=== PATIENT | female | born 1955 | race Caucasian/White ===

== ENCOUNTER 2021-01-10 12:46 | Emergency (ER) | payer MEDICARE ==
[2021-01-10] MEDS ORDERED: TORAdol 30 mg Injection ONE (12:58)
[2021-01-10] MEDS ORDERED: TORAdol 30 mg Injection IM ONE (12:58)
--- NOTE | 2021-01-10 13:16 | ERPHSYRPT ---
- History of Present Illness Time Seen by Provider: 01/10/21 13:12 Source: patient Exam Limitations: no limitations Patient Subjective Stated Complaint: pt here for pain to left wrist, she stepped out of a camper and fell on deck landing on left wrist Triage Nursing Assessment: pt alert, resp easy, walked in, face fask in place, has deformity to left wrist, hand warm with strong radial pulse Physician History: pt here for pain to left wrist, she stepped out of a camper and fell on deck landing on left wrist Occurred: just prior to arrival Reason for Fall: fell from standing pos Injuries/Pain Location: upper extremity (left) Loss of Consciousness: no loss of consciousness Quality: aching Severity of Pain-Max: moderate Severity of Pain-Current: moderate Modifying Factors: Improves With: nothing Associated Symptoms (Fall): denies symptoms Allergies/Adverse Reactions: ciprofloxacin [From Cipro] Adverse Reaction (Verified 01/10/21 13:00) levofloxacin [From Levaquin] Adverse Reaction (Verified 01/10/21 13:00) Home Medications: Fluticasone/Salmeterol 230/21* [Advair Hfa 230/21 Mcg MDI] 1 ea DAILY 01/10/21 [History] Hydrochlorothiazide 1 ea DAILY 01/10/21 [History] Hx Influenza Vaccination/Date Given: Yes Hx Pneumococcal Vaccination/Date Given: Yes Immunizations Up to Date: Yes Travel Risk - International Travel Have you traveled outside of the country in past 3 weeks: No - Coronavirus Screening Are you exhibiting any of the following symptoms?: No Close contact with a COVID-19 positive Pt in past 14-21 Days: No - Review of Systems Constitutional: No Fever, No Chills Eyes: No Symptoms Ears, Nose, & Throat: No Symptoms Respiratory: No Cough, No Dyspnea Cardiac: No Chest Pain, No Edema, No Syncope Abdominal/Gastrointestinal: No Abdominal Pain, No Nausea, No Vomiting, No Diarrhea Genitourinary Symptoms: No Dysuria Musculoskeletal: Deformity (left wrist), Fall, Joint Pain, Joint Swelling, No Back Pain, No Neck Pain Skin: No Rash Neurological: No Dizziness, No Focal Weakness, No Sensory Changes Psychological: No Symptoms Endocrine: No Symptoms All Other Systems: Reviewed and Negative - Past Medical History Pertinent Past Medical History: Yes Respiratory History: COPD - Past Surgical History Past Surgical History: Yes Female Surgical History: Hysterectomy - Social History Smoking Status: Former smoker Exposure to second hand smoke: No Drug Use: none Patient Lives Alone: No - Female History Hx Last Menstrual Period: post - Nursing Vital Signs Nursing Vital Signs: Initial Vital Signs Temperature 97.4 F 01/10/21 12:54 Pulse Rate 88 01/10/21 12:54 Respiratory Rate 18 01/10/21 12:54 Blood Pressure 161/75 01/10/21 12:54 O2 Sat by Pulse Oximetry 95 01/10/21 12:54 Pain Scale Pain Intensity 7 - Vanita Coma Score Best Eye Response ([place]): (4) open spontaneously Best Verbal Response ([place]): (5) oriented Best Motor Response ([place]): (6) obeys commands Vanita Total: 15 - Physical Exam General Appearance: no apparent distress, alert Head Injury: no evidence of injury Eye Exam: PERRL/EOMI ENT Exam: airway nml Neck Exam: normal inspection, No tenderness Respiratory/Chest Exam: normal breath sounds, No chest tenderness, No respiratory distress Cardiovascular Exam: normal heart sounds, regular rate/rhythm Gastrointestinal Exam: soft, No tenderness, No distention, No guarding, No ecchymosis Back Exam: normal inspection, No vertebral tenderness Extremity Exam: normal inspection, normal range of motion, pelvis stable, limited range of motion, bony point tenderness (left wrist, elbow), evidence of injury, No deformities Neurologic Exam: alert, oriented x 3, cooperative, sensation nml, No motor deficits Skin Exam: normal color, warm, dry SpO2: 95 Procedures - Splinting Time of Procedure: 13:42 Location of Splint: Left, Wrist Type of Splint: Orthoglass Short Arm Splint Splint Applied By: ED Nurse Pre-Proc Neuro Vasc Exam: normal Post-Proc Neuro Vasc Exam: neurovascular intact - Course Nursing assessment & vital signs reviewed: Yes - Radiology Exams Elbow X-ray Interpretation: Reviewed by me Wrist X-ray Interpretation: Reviewed by me, Displaced Fracture Hand X-ray Interpretation: Reviewed by me Ordered Tests: Active Orders 24 hr Category Date Time Status Cold Application STAT Care 01/10/21 12:56 Active ELBOW (MINIMUM 3 VIEWS) Stat Exams 01/10/21 12:55 Taken HAND (MINIMUM 3 VIEWS) Stat Exams 01/10/21 12:55 Taken WRIST (MIN 3 VIEWS) Stat Exams 01/10/21 12:55 Taken Medication Summary Discontinued Medications Generic Name Dose Route Start Last Admin Trade Name Alicia PRN Reason Stop Dose Admin Ketorolac Tromethamine 60 mg 01/10/21 12:58 01/10/21 13:04 Toradol 30 Mg Injection IM 01/10/21 12:59 60 mg STAT ONE Administration Ketorolac Tromethamine Confirm 01/10/21 12:58 Toradol 30 Mg Injection Administered 01/10/21 12:59 Dose 60 mg .ROUTE .STK-MED ONE - Progress Progress: unchanged, pain not gone completely Counseled pt/family regarding: diagnosis, need for follow-up (with orthopedics surgeon on tuesday) - Departure Departure Disposition: Home Clinical Impression: Wrist fracture, closed Qualifiers: Encounter type: initial encounter Laterality: left Qualified Code(s): S62.102A - Fracture of unspecified carpal bone, left wrist, initial encounter for closed fracture Condition: Stable Critical Care Time: No Referrals: MUMTAZ CORTEZ, [Primary Care Provider] - Instructions: Wrist Fracture (DC) Additional Instructions: follow up with your [facility] care physician or orthopedics surgeon in your town on tuesday. Discharge/Care Plan ELIZA ANGEL was seen on 01/10/21 in the Emergency Room. The patient was counseled regarding Diagnosis,Lab results, Imaging studies, need for follow up and when to return to the Emergency Room. Prescriptions given: Discharge Note I have spoken with the patient and/or caregivers. I have explained the patient's condition, diagnosis and treatment plan based on the information available to me at this time. I have answered the patient's and/or caregiver's questions and addressed any concerns. The patient and/or caregivers have as good understanding of the patient's diagnosis, condition and treatment plan as can be expected at this point. The vital signs have been stable. The patient's condition is stable and appropriate for discharge from the emergency department. The patient will pursue further outpatient evaluation with the primary care physician or other designated or consulting physician as outlined in the discharge instructions. The patient and/or caregivers are agreeable to this plan of care and follow-up instructions have been explained in detail. The patient and/or caregivers have received these instruction. The patient/and or caregivers are aware that any significant change in condition or worsening of symptoms should prompt an immediate return to this or the closest emergency department or call 911. ELIZA ANGEL was seen on 01/10/21 n the Emergency Room. At that time you were treated for an emergent condition, during your visit Laboratory, Radiology and/or other procedures may have been ordered. It is very important that you follow-up with your Primary Care Physician MUMTAZ CORTEZ within the next 24-48 hours to review your Emergency Room visit and the final results of testing that was ordered. Some test results such as Urine Cultures, Blood Cultures, and other cultures if ordered will not be finalized for 24-48 hours. If you do not have a Primary Care Provider please call the medical records department at [phone] ext [phone] to obtain a copy of your results or you may sign into our patient portal to obtain these results by visiting us @ [email or web address] and completing the following steps: 1. Click on the Patient Portal link 2. Click the Patient Self Enrollment Link to complete the enrollment form and entering your 3. Once the enrollment form is completed you will receive an email with a temporary ID and password at the email address you provided. 4. Next choose a user name and password. Your user name must be at least 4 characters long and your password must be at least 4 characters long. 5. Choose a security question from the list and provide your answer to the question. If you already have signed into the Health Portal you may access your Health Care Information 16/05 by the following steps: 1. Login to our website @ [email or web address] 2. Enter your original user name and password. FAQS The [facility] Health Portal is an online tool that contains your Lab Results, Radiology Reports, Visit History, Discharge Instructions and Health Summary Lab and Radiology Results will not be available for 72 hours on the portal. The Portal is a secure site, passwords are encryted and URLs are re-written so they cannot be copied and pasted. You and authorized family members are the only ones who can access your Portal. Also there is a timeout feature that protects your information if you leave the Portal page open. If you have technical difficulty please use the Contact Us link on the page this will allow you to submit any questions you have regarding the Portal or you may contact the Medical Record Department at [phone]. Prescriptions: Hydrocodone/Acetaminophen [Hydrocodone-Acetamin 10-325 mg] 1 each PO Q6HPRN PRN #15 tablet MDD 4 PRN Reason: Severe Pain
[2021-01-10 13:51] VITALS: BP 151/70; PULSE 88
[2021-01-10 13:59] VITALS: O2SAT 95
--- NOTE | 2021-01-10 18:47 | XRAY ---
Indication: Pain and swelling following fall. Comparison: None 3 view left wrist demonstrates mildly displaced and angulated comminuted fracture involving distal radius with intra-articular extension, displaced comminuted ulnar styloid fracture, and soft tissue swelling. No other bony, articular, or soft tissue abnormalities. Comment: Preliminary interpretation was made by [facility]. No critical discrepancy.
--- NOTE | 2021-01-10 18:49 | XRAY ---
Indication: Pain following fall. Comparison: None 3 view left hand demonstrates distal radius/ulna fractures reported separately. No other bony, articular, or soft tissue abnormalities.
--- NOTE | 2021-01-10 18:55 | XRAY ---
Indication: Pain and swelling following fall. Comparison: None 3 view left elbow obtained. No bony, articular, or soft tissue abnormalities.
== END 2021-01-10 13:59 | disposition home or self-care (01) ==
LOC: ED 12:46
DX: S62.102A Fracture of unspecified carpal bone, left wrist, initial encounter for closed fracture (principal); M25.532 Pain in left wrist; W18.31XA Fall on same level due to stepping on an object, initial encounter; Y93.89 Activity, other specified; Y92.89 Other specified places as the place of occurrence of the external cause; J44.9 Chronic obstructive pulmonary disease, unspecified
CPT/HCPCS: 29126; 73080; 73110; 73130; 96372; 99284; J1885

== ENCOUNTER 2025-02-26 01:58 | Emergency (ER) | payer MEDICARE ==
[2025-02-26 02:15] VITALS: TEMP 98.2
--- NOTE | 2025-02-26 02:32 | ERPHSYRPT ---
- History of Present Illness Source: patient Exam Limitations: no limitations Patient Subjective Stated Complaint: pt reports sudden onset of shortness of breath while at rest this evening. reports productive cough/headache/sinus drainage for 2 days - pt states she wears oxygen as needed at home, pt reports history of bronchiestasis Triage Nursing Assessment: pt is aox3, pupils perrl, afebrile, pt is short of breath upon arrival, pt is tachypneic,pt lung sounds are diminished throughout, pt has a intermittent moist cough noted, cap refill < 3 seconds, radial pulses strong and equal, pt skin pink warm dry. no edema appreciated. Physician History: Patient took a Benadryl tonight. She thinks it made her heart race. Her heart is racing before. She gets short of breath when this happens. She has a pulse ox at home her O2 sats dropped down in the 80s and her heart rate was around 150. This lasted for about a half an hour. They decided to come in. She is at a normal heart rate at this time. She says she feels back to baseline. She does require oxygen at home when exerting herself because she has bronchiaStasis.We put her on oxygen here at 4 L and she was up to around 97 and feeling much better. Her heart was going around 80 beats a minute. She does not have any chest pain. She has no dyspnea at this time. She does not have a cough fever chills or other systemic symptoms. She has some nasal congestion and says that that is why she took the Benadryl.She has been worked up for this paroxysmal tachycardia in the past and they did not find anything. She usually does not come in when it occurs because it is usually self-limited this time it lasted for about a half an hour and she is pretty symptomatic so she decided to come in.She has no other complaints. She does not have any congestive heart failure orCoronary disease. Allergies/Adverse Reactions: ciprofloxacin [From Cipro] Adverse Reaction (Verified 02/26/25 02:15) levofloxacin [From Levaquin] Adverse Reaction (Verified 02/26/25 02:15) Home Medications: Fluticasone/Salmeterol 230/21* [Advair Hfa 230/21 Mcg MDI] 1 ea DAILY 01/10/21 [History] hydroCHLOROthiazide [Hydrochlorothiazide] 1 ea DAILY 01/10/21 [History] Hx Tetanus, Diphtheria Vaccination/Date Given: No Hx Influenza Vaccination/Date Given: Yes Hx Pneumococcal Vaccination/Date Given: Yes Immunizations Up to Date: Yes Travel Risk - International Travel Have you traveled outside of the country in past 3 weeks: No - Emerging Infectious Disease Are you exhibiting symptoms associated with any current EIDs: Yes Symptoms: Shortness of Breath - Review of Systems Constitutional: No Symptoms Eyes: No Symptoms Abdominal/Gastrointestinal: No Symptoms Genitourinary Symptoms: No Symptoms Musculoskeletal: No Symptoms Skin: No Symptoms All Other Systems: Reviewed and Negative - Past Medical History Pertinent Past Medical History: Yes Neurological History: No Pertinent History Cardiac History: Hypertension Respiratory History: Asthma, Bronchitis Endocrine Medical History: Diabetes Type II Musculoskeletal History: Fractures Other Medical History: L distal radius fracture (01/11) - Past Surgical History Past Surgical History: Yes Musculoskeletal: Orthopedic Surgery Female Surgical History: Hysterectomy Other Surgical History: WRIST - Social History Smoking Status: Former smoker Exposure to second hand smoke: No Drug Use: none - Social Determinants of Health Will the patient participate in the screening: Yes Do you worry about a steady place to live?: No Do you have any problems with any of the following?: No known problems In the past 12 months,have you had to go without utilities?: No Transportation Issues: No Has anyone in your support network made you feel unsafe?: No Have you or anyone in your house had to go w/o enough food: No - Nursing Vital Signs Nursing Vital Signs: Initial Vital Signs Temperature 98.2 F 02/26/25 01:59 Pulse Rate 119 H 02/26/25 01:59 Respiratory Rate 28 H 02/26/25 01:59 Blood Pressure 173/70 02/26/25 01:59 O2 Sat by Pulse Oximetry 91 L 02/26/25 01:59 Pain Scale Pain Intensity 2 - Physical Exam General Appearance: no apparent distress Eye Exam: PERRL/EOMI Neck Exam: normal inspection Respiratory Exam: other (Crackles in the lungs midway down. This is chronic with her.) Cardiovascular/Chest Exam: normal heart sounds, regular rate/rhythm Abdominal/Gastrointestinal Exam: soft, normal bowel sounds, tenderness Extremity Exam: non-tender, normal range of motion, normal inspection Neurologic Exam: alert, oriented x 3, cooperative, normal mood/affect Skin Exam: normal color, warm, dry SpO2 Interpretation: normal SpO2: 97 O2 Delivery: Nasal Cannula (4 L) - Course Nursing assessment & vital signs reviewed: Yes Ordered Tests: Active Orders 24 hr Category Date Time Status EKG-ER Only STAT Care 02/26/25 02:28 Active CHEST 1 VIEW (PORTABLE) Stat Exams 02/26/25 02:28 Taken BMP Stat Lab 02/26/25 02:28 Completed CBC W DIFF Stat Lab 02/26/25 02:28 Completed TROPONIN Q4H Lab 02/26/25 02:30 Completed TROPONIN Q4H Lab 02/26/25 06:45 Ordered TROPONIN Q4H Lab 02/26/25 10:45 Ordered Medication Summary Discontinued Medications Generic Name Dose Route Start Last Admin Trade Name Alicia PRN Reason Stop Dose Admin Acetaminophen 1,000 mg 02/26/25 02:38 02/26/25 02:40 Acetaminophen 500 Mg Tablet PO 02/26/25 02:39 1,000 mg STAT STA Administration Acetaminophen Confirm 02/26/25 02:39 Acetaminophen 500 Mg Tablet Administered 02/26/25 02:40 Dose 1,000 mg .ROUTE .[facility]-Notice [facility] ONE Lab/Rad Data: Laboratory Result Diagrams 02/26/25 02:28 02/26/25 02:28 Laboratory Results 02/26/25 02/26/25 02/26/25 Range/Units 02:30 02:28 02:28 WBC 13.2 H (3.98-10.04) x10^3/uL RBC 3.71 L (3.93-5.22) x10^6/uL Hgb 12.2 (11.2-15.7) g/dL Hct 38.2 (34.1-44.9) % MCV 103.0 H (79.4-94.8) fL MCH 32.9 H (25.6-32.2) pg MCHC 31.9 L (32.2-35.5) g/dL RDW 13.3 (11.7-14.4) % Plt Count 260 (182-369) x10^3/uL MPV 11.1 (9.4-12.3) fL Gran % 77.3 H (34.0-71.1) % Immature Gran % (Auto) 0.6 H (0.001-0.429) % Nucleat RBC Rel Count 0.0 (0.00-0.2) % Eos # (Auto) 0.09 (0.04-0.36) x10^3/uL Immature Gran # (Auto) 0.08 H (0.001-0.031) x10^3u/L Absolute Lymphs (auto) 1.43 (1.18-3.74) x10^3/uL Absolute Monos (auto) 1.37 H (0.24-0.86) x10^3/uL Absolute Nucleated RBC 0.00 (0.00-0.012) x10^3u/L Lymphocytes % 10.8 L (19.3-51.7) % Monocytes % 10.4 (4.7-12.5) % Eosinophils % 0.7 (0.7-5.8) % Basophils % 0.2 (0.1-1.2) % Absolute Granulocytes 10.20 H (1.56-6.13) x10^3/uL Basophils # 0.03 (0.01-0.08) x10^3/uL Sodium 141 (135-145) mmol/L Potassium 4.2 (3.5-5.1) mmol/L Chloride 102 (98-107) mmol/L Carbon Dioxide 24 (22-30) mmol/L Anion Gap 18.9 H (5-15) MEQ/L BUN 19 H (7-17) mg/dL Creatinine 1.08 H (0.52-1.04) mg/dL Estimated GFR 54.9 ML/MIN Glucose 127 H (74-106) mg/dL Calcium 10.0 (8.4-10.2) mg/dL Troponin I < 0.012 (0.000-0.033) ng/mL - Progress Progress: improved Air Movement: good Progress Note: We observe the patient for about 2 hours. She did not have any arrhythmias. Her labs all look good for the most part. At this time I do not think that there is anything to do. She is going to follow-up with her doctor again who is investigating her paroxysmal tachycardias.She is feeling back to baseline and normal. I went to let her go home. I do not know what the etiology of her tachycardias are.She is asking for something for congestion that will not cause her heart rate to go fast and will try her on Flonase. 02/26/25 03:52 02/26/25 03:54 Blood Culture(s) Obtained: No Antibiotics given: No Medical Desision Making - Independent Historian Additional History obtained from: Spouse - External Record(s) Reviewed Records reviewed as a part of evaluation & management: Inpatient - Diagnostic Testing Diagnostic test were ordered, analyzed, and reviewed by me: Yes Radiological Interpretation: Interpreted by me - Risk of complications Low Risk: Low risk of morbidity from additional dx testing or treatment - Departure Departure Disposition: Home Clinical Impression: Palpitations Condition: Stable Critical Care Time: No Referrals: MUMTAZ CORTEZ DO [Primary Care Provider, [facility]] - Follow up/PCP as directed Instructions: Overview of heart arrhythmias
[2025-02-26] MEDS ORDERED: TYLENOL EXTRA STRENGTH 500 MG ONE (02:39)
[2025-02-26] MEDS: TYLENOL EXTRA STRENGTH 500 MG PO STA (02:40)
[2025-02-26 02:41] LABS: BASOPHIL % 0.2 % (0.1-1.2); Basophil (Absolute #) 0.03 x10^3/uL (0.01-0.08); Eosinophil % 0.7 % (0.7-5.8); Eosinophil (Absolute #) 0.09 x10^3/uL (0.04-0.36); Hematocrit 38.2 % (34.1-44.9); Hemoglobin 12.2 g/dL (11.2-15.7); IMMATURE GRAN # 0.08 x10^3u/L (0.001-0.031); IMMATURE GRAN % 0.6 % (0.001-0.429); Lymphocyte (Absolute #) 1.43 x10^3/uL (1.18-3.74); Lymphocytes % 10.8 % (19.3-51.7); Mean Corpuscular Hemoglobin 32.9 pg (25.6-32.2); Mean Corpuscular Hgb Concent. 31.9 g/dL (32.2-35.5); Mean Platelet Volume 11.1 fL (9.4-12.3); Monocyte (Absolute #) 1.37 x10^3/uL (0.24-0.86); Monocytes % 10.4 % (4.7-12.5); Neutrophil % 77.3 % (34.0-71.1); Platelet Count 260 x10^3/uL (182-369); Red Blood Count 3.71 x10^6/uL (3.93-5.22); Red Cell Distribution Width 13.3 % (11.7-14.4); White Blood Count 13.2 x10^3/uL (3.98-10.04)
[2025-02-26 02:53] LABS: ANION GAP 18.9 MEQ/L (5-15); Creatinine 1 1.08 mg/dL (0.52-1.04); EST GLOMERULAR FILTRATION RATE 54.9 ML/MIN; Potassium 4.2 mmol/L (3.5-5.1)
[2025-02-26] MEDS ORDERED: Flonase NASAL NS ONE (03:59)
[2025-02-26] MEDS: Flonase NASAL NS SCH (04:01)
[2025-02-26 04:02] VITALS: BP 173/69; PULSE 96; RESP 20; O2SAT 95
--- NOTE | 2025-02-26 08:53 | XRAY ---
Indication: Dyspnea. Comparison: None Portable chest hyperinflated with mild left base infiltrate/atelectasis/effusion. Remaining lungs hyperinflated and clear. Heart not enlarged. Bony thorax intact with osteopenia, mild degenerative changes, mild dextroscoliosis centered at T7, and old right 7/8 rib fractures.
== END 2025-02-26 04:15 | disposition home or self-care (01) ==
LOC: ED 01:58
DX: R00.2 Palpitations (principal); R06.02 Shortness of breath; Z79.899 Other long term (current) drug therapy
CPT/HCPCS: 36415; 71045; 80048; 84484; 85025; 93005; 99284; 99285; A9270-GY